=== PATIENT | female | born 1995 | race Caucasian/White ===

== ENCOUNTER 2019-03-31 19:49 | Emergency (ER) | payer BC, OTHER ==
[2019-03-31 20:18] VITALS: BP 118/79
--- NOTE | 2019-03-31 21:14 | UC ---
Complaint Female HPI - HPI Summary HPI Summary: reports 3 days of dysuria. has had UtI's often, was previously on preventive antibx in the past for this. denies abd pain, fever, back pain. Of note pt has Urologist she hasn't seen in a year - History Of Current Complaint Chief Complaint: UCGU Stated Complaint: POSS UTI Time Seen by Provider: 03/31/19 21:07 Hx Obtained From: Patient Hx Last Menstrual Period: depo ?: No Pain Intensity: 9 Pain Scale Used: 0-10 Numeric Character: Burning Aggravating Factor(s): Urination Alleviating Factor(s): Nothing - Allergies/Home Medications Allergies/Adverse Reactions: Allergies Allergy/AdvReac Type Severity Reaction Status Date / Time amoxicillin Allergy Hives Verified 03/31/19 20:16 PMH/Surg Hx/FS Hx/Imm Hx - Additional Past Medical History Additional PMH: recurrent uti's Previously Healthy: Yes - Surgical History Surgical History: Yes Surgery Procedure, Year, and Place: 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 Vesicoureteral reflux - since 1998 - Family History Known Family History: Positive: None - Social History Alcohol Use: Weekly Substance Use Type: None Smoking Status (MU): Never Smoked Tobacco Have You Smoked in the Last Year: No - Immunization History Most Recent Influenza Vaccination: Fall 2014 Vaccination Up to Date: Yes Review of Systems All Other Systems Reviewed And Are Negative: Yes Constitutional: Negative: Fever Skin: Negative: Rash Respiratory: Positive: Negative Cardiovascular: Positive: Negative Genitourinary: Positive: Dysuria, Urgency. Negative: Hematuria, Frequency, Vaginal/Penile Discharge Musculoskeletal: Negative: Other: - denies back pain Physical Exam Triage Information Reviewed: Yes Appearance: Well-Appearing Vital Signs: Initial Vital Signs Temp 99.6 F 03/31/19 20:11 Pulse 79 03/31/19 20:11 Resp 16 03/31/19 20:11 BP 118/79 03/31/19 20:11 Pulse Ox 100 03/31/19 20:11 Vital Signs Reviewed: Yes Respiratory Exam: Normal Cardiovascular Exam: Normal Abdomen Description: Positive: Nontender, Soft. Negative: CVA Tenderness (R), CVA Tenderness (L) Neurological: Positive: Alert Skin: Negative: Rashes Complaint Female Dx - Course Course Of Treatment: UTI symptoms in a pt. who gets recurrent UTI's. UA showed + nitrites and will tx empirically but have strongly advised she contact her Urologist for evaluated after wards. vitals good. exam unremarkable. - Differential Dx/Diagnosis Differential Diagnosis/HQI/PQRI: Urinary Tract Infection Provider Diagnosis: UTI (urinary tract infection) Discharge - Sign-Out/Discharge Documenting (check all that apply): Patient Departure All imaging exams completed and their final reports reviewed: No Studies - Discharge Plan Condition: Good Disposition: HOME Prescriptions: Nitrofurantoin Monohyd/M-Cryst [Macrobid 100 mg Capsule] 100 mg PO BID 7 Days # 14 cap Patient Education Materials: Urinary Tract Infection in Women (ED) Referrals: Nikki Chapman MD [Primary Care Provider] - Additional Instructions: Please follow up with Urologist within 3 days. - Billing Disposition and Condition Condition: GOOD Disposition: Home
[2019-04-04 13:34] LABS: Neisseria gonorrhoeae (GC) RNA Negative (Negative)
== END 2019-03-31 21:35 | disposition home or self-care (01) ==
LOC: UCEAST 19:49
DX: N39.0 Urinary tract infection, site not specified (principal); Z87.440 Personal history of urinary (tract) infections
CPT/HCPCS: 81003; 87086; 87491; 87591; 99202; G0463

== ENCOUNTER 2024-05-17 01:10 | Inpatient (IN) ==
[2024-05-17] MEDS ORDERED: Lidocaine 1% VIAL 10 MG/ML 30 ML VIAL INJ PRN (02:15)
[2024-05-17] MEDS: Lactated Ringers 1000 ml BAG 1,000 ML IV ONE ×2 (02:33→09:41)
[2024-05-17 02:42] LABS: ABS Basophils 0.1 10^3/uL (0.0-0.1); ABS Eosinophils 0.1 10^3/uL (0.0-0.5); ABS Lymphocytes 1.6 10^3/uL (1.0-4.8); ABS Monocytes 0.8 10^3/uL (0.0-0.9); ABS Neutrophils 6.7 10^3/uL (1.5-7.6); ABS Nucleated RBC 0.01 10^3/ul; Eosinophil % 0.9 %; Hematocrit 39.9 % (35-45); Hemoglobin 13.8 g/dL (11.5-14.3); Lymphocyte % 17.8 %; Mean Corpuscular Hemoglobin 33.1 pg (27-33); Mean Corpuscular Hgb Conc 34.6 g/dL (31-36); Mean Corpuscular Volume 95.4 fL (80-97); Mean Platelet Volume 8.5 fL (7.5-11.2); Nucleated Red Blood Cells % 0.1 %/100WBC (0.0-0.8); Platelet Count 202 10^3/uL (150-450); Red Blood Count 4.18 10^6/uL (3.63-4.92); Red Cell Distribution Width 13.7 % (12-17); White Blood Count 9.2 10^3/uL (3.8-11.8)
[2024-05-17] MEDS: OBEPIDURAL (200 ML) 200 ML EPIDURAL ONE (03:01)
[2024-05-17] MEDS ORDERED: Sodium Citrate/Citric Acid LIQ 15 ML UDC PO PRN (03:11)
[2024-05-17] MEDS: Phenylephrine 40 mcg/mL 10mL (400mcg) SYRINGE IV PUSH PRN ×2 (03:25→06:46)
[2024-05-17 03:58] LABS: Urine Appearance Clear; Urine Bilirubin Negative (Negative); Urine Blood 1+ (Negative); Urine Color Light-Yellow; Urine Glucose Negative (Negative); Urine Ketones Negative (Negative); Urine Nitrite Negative (Negative); Urine Protein Negative (Negative); Urine Urobilinogen Negative (Negative); Urine pH 7.5 (5.0-8.0)
[2024-05-17 04:13] LABS: Urine Benzodiazepine Screen None Detected (None Detect); Urine Cannabinoids Screen None Detected (None Detect); Urine Opiates Screen None Detected (None Detect)
[2024-05-17] MEDS: Ondansetron 4 mg VIAL 2 MG/ML 2 ml VIAL IV PRN (04:16)
[2024-05-17] MEDS: Lidocaine 1.5% EPI 1:200,000 30 ML SDV ONE (04:21)
[2024-05-17] MEDS: OBEPIDURAL (200 ML) 200 ML EPIDURAL SCH (04:21)
[2024-05-17] MEDS: Lactated Ringers 1000 ml BAG 1,000 ML IV SCH (04:44)
[2024-05-17 05:52] LABS: Urine Bacteria 1+ /HPF (Absent); Urine Red Blood Cell 3+(>10/hpf) /HPF (0-Trace); Urine Squamous Epithelial Cell Present /HPF (Absent); Urine White Blood Cell Trace(0-5/hpf) /HPF (0-Trace)
[2024-05-17] MEDS ORDERED: Lactated Ringers 1000 ml BAG 1,000 ML IV SCH (09:00)
[2024-05-17] MEDS: Oxytocin in LR 20,000 MILLI.UNIT/1,000 ML BAG IV SCH ×2 (09:39→20:31)
[2024-05-17] MEDS: Witch Hazel PAD JAR TOPICAL PRN (09:41)
[2024-05-17] MEDS: Dibucaine 1% OINT 28.35 GM TUBE PR PRN (09:41)
[2024-05-17] MEDS: Oxytocin in LR 20,000 MILLI.UNIT/1,000 ML BAG IV ONE (19:26)
[2024-05-18 07:43] VITALS: BP 105/65
[2024-05-18 08:07] LABS: ABS Eosinophils 0.2 10^3/uL (0.0-0.5); ABS Lymphocytes 1.4 10^3/uL (1.0-4.8); ABS Monocytes 0.7 10^3/uL (0.0-0.9); ABS Neutrophils 6.5 10^3/uL (1.5-7.6); Eosinophil % 2.2 %; Hemoglobin 13.2 g/dL (11.5-14.3); Lymphocyte % 15.6 %; Mean Corpuscular Hemoglobin 33.6 pg (27-33); Mean Corpuscular Hgb Conc 34.7 g/dL (31-36); Mean Corpuscular Volume 96.7 fL (80-97); Mean Platelet Volume 8.8 fL (7.5-11.2); Platelet Count 188 10^3/uL (150-450); Red Blood Count 3.93 10^6/uL (3.63-4.92); White Blood Count 8.9 10^3/uL (3.8-11.8)
[2024-05-18] MEDS: Measles, Mumps,Rubella VACC 0.5 ML/VIAL SUBCUT ONE (09:50)
== END 2024-05-18 13:00 | disposition home or self-care (01) | DRG 560 ==
LOC: MCHOBOUT 01:10 → MCHOB 02:11
PROVIDERS: ADMIT Midwife; ATTEND Midwife